=== PATIENT | female | born 1995 | race Caucasian/White ===

== ENCOUNTER 2021-10-10 13:51 | Outpatient (CLI) | payer BC, SELFPAY | END 2021-10-10 13:52 | disposition home or self-care (01) | LOC: AMB 10-16 12:51 | PROVIDERS: Visit Provider Student in an Organized Health Care Education/Training Program | DX: R55 Syncope and collapse (principal); R11.10 Vomiting, unspecified | CPT/HCPCS: A0425; A0427 ==

== ENCOUNTER 2021-10-10 14:35 | Emergency (ER) | payer BC, SELFPAY ==
[2021-10-10] VITALS (7 sets, daily range): BP systolic 100–115; BP diastolic 64–80; PULSE 82–99; RESP 12–14; TEMP 36.4; O2SAT 100; BMI 21.2
--- NOTE | 2021-10-10 15:04 | ED.GENADULT ---
HPI - General Adult General Time Seen by Provider: 15:04 Date Seen: 10/10/21 Chief complaint: Nausea/Vomiting/Diarrhea Stated complaint: nausea, vomiting, diarrhea, dizziness Source: patient Mode of arrival: EMS Limitations: no limitations History of Present Illness HPI narrative: Guillaume is a 26-year-old female with past medical history includes asthma presents emerged department by EMS with nausea vomiting, diarrhea dizziness. Patient states that she works usually 8:30 a.m. to 11:00 p.m. at night, she went to work at 10:00 a.m. months home by 1 p.m, patient had ongoing nausea at that time, she started having multiple episodes of vomiting, total of 5, she did have some loose stools during that day. She had some ongoing nausea with some discomfort associated with the vomiting. She has seen any urinary complaints. No sick contacts. She denies any fevers, she felt relatively well on Friday, then on day her symptoms returned, she has had episodes of vomiting daily, 1-2, diarrhea has resolved, she has been doing the brat diet. She states she has been 3 bottles of Pedialyte yesterday, she has had associated lightheadedness to the point where she almost blacks out. She denies any shortness of breath or chest pain, she denies any headache. Patient received 500 mL bolus and 4 mg IV Zofran per EMS. Patient denies any pain at this time, she did have ongoing upset stomach and nausea. Related Data Home Medications Medication Instructions Recorded Confirmed control 10/10/21 Allergies Allergy/AdvReac Type Severity Reaction Status Date / Time cefprozil [From Cefzil] Allergy Intermediate Rash Verified 10/10/21 14:40 Review of Systems Status of ROS: Reports: 10 or more systems reviewed and unremarkable except as noted in History and below [facility] Medical History (Updated 10/25/21 @ 00:00 by ) Asthma Surgical History (Updated 10/10/21 @ 15:10 by Terese Damon RN) History of placement of ear tubes Social History Smoking Status: Former smoker What tobacco products do you use: cigarettes How often do you have a drink containing alcohol: never AUDIT-C Alcohol total score: 0 Non-prescribed substance use: denies use Exam Const: Vital Signs, click to edit/add: Vital Signs - 24 hr 10/10/21 14:40 10/10/21 15:12 10/10/21 16:00 Temperature 97.6 F Pulse Rate [Right Pulse Oximeter] 84 83 Pulse Rate [orthos tatic lying] 93 Pulse Rate [orthos tatic sitting] 97 Pulse Rate [orthos tatic standing] 99 Respiratory Rate 14 14 Blood Pressure [Ri ght Upper Arm] 106/70 108/71 Blood Pressure [or thostatic lying] 100/72 Blood Pressure [or thostatic sitting] 115/72 Blood Pressure [or thostatic standing ] 110/80 Pulse Oximetry 100 100 Common normals: no apparent distress and oriented x3 Exam limitations: altered mental status General appearance: cooperative Orientation/consciousness: Yes awake, Yes oriented to person, Yes oriented to place and Yes oriented to time HENMT: Common normals: normocephalic and TM's normal bilaterally Head and scalp: normal to inspection and normocephalic Tympanic membrane: TM's normal bilaterally Mouth: oral and palatal mucosa normal Throat: posterior oropharynx normal Eye: Common normals: PERRL, EOMs intact bilaterally and conjunctivae normal General eye: normal appearance of both eyes Conjunctiva: conjunctiva(e) normal Pupil: PERRL Neck & C-Spine: Common normals: full ROM, no lymphadenopathy and supple General: normal visual inspection Lymph: Lymphatic: no lymphadenopathy noted Chest: Common normals: inspection of chest normal Resp: Common normals: normal respiratory effort, no retractions, no use of accessory muscles and clear to auscultation bilaterally Auscultation: clear to auscultation bilaterally Cardio: Common normals: regular rhythm, S1 normal heart sound and S2 normal heart sound Rhythm: regular rhythm Heart sounds: S1 normal and S2 normal GI: Common normals: Normal to inspection, nondistended, normoactive bowel sounds present, soft to palpation and non-tender Palpation: soft : Common normals: no CVA tenderness Bladder/kidney exam: no CVA tenderness Back & Pelvis: Common normals: no CVA tenderness and thoracic and lumbar spine normal to inspection Extremity: Common normals: normal to inspection, full ROM and normal capillary refill Neuro: Common normals: oriented x3 and CN's II-XII intact bilaterally Sensorium/orientation: awake, oriented to person, oriented to place and oriented to time Course Course Hospital Course: Workup will include IV peripheral, 0.9 normal saline bolus, 40 mg IV Protonix, obtain basic labs including quantitative HCG, CBC, CRP and lipase. Vitals are stable at this time, obtain orthostatics, to treat asymptomatically, less likely COVID. Patient was in agreement. Differential diagnosis include viral gastroenteritis, COVID, food poisoning, gastritis, pancreatitis, hepatitis cholecystitis appendicitis bowel obstruction nervosa, migraine headache motion sickness medication side effects. Include life-threatening complications appendicitis. Reevaluation(s) Reevaluation #1: Patient was updated on her lab results, CBC showed no leukocytosis, CRP within normal limits, metabolic panel unremarkable, she was not orthostatic. She was given the above care and feels better, she is tolerating orals at this time. Plan will be to discharge. Patient to follow up with her primary care provider over the next 7-10 days, return precautions given. Time: 16:37 Vital Signs Vital signs: Initial Vital Signs Temperature 97.6 F 10/10/21 14:40 Temperature Source Temporal Artery Scan 10/10/21 14:40 Pulse Rate 84 10/10/21 14:40 Respiratory Rate 14 10/10/21 14:40 Blood Pressure 106/70 10/10/21 14:40 Blood Pressure Mean 82 10/10/21 14:40 Blood Pressure Position Sitting 10/10/21 14:40 Pulse Oximetry 100 10/10/21 14:40 Oxygen Delivery Method 10/10/21 14:40 Vital Signs Temperature 97.6 F 10/10/21 14:40 Pulse Rate 84 10/10/21 14:40 Respiratory Rate 14 10/10/21 14:40 Blood Pressure 106/70 10/10/21 14:40 Pulse Oximetry 100 10/10/21 14:40 Temperature 97.6 F 10/10/21 17:24 Pulse Rate 82 10/10/21 17:24 Respiratory Rate 14 10/10/21 17:24 Blood Pressure 107/70 10/10/21 17:24 Pulse Oximetry 100 10/10/21 17:00 Medical Decision Making Lab Data Labs: Lab Results 10/10/21 10/10/21 Range/Units 15:08 15:08 WBC 7.31 (4.50-11.00) K/uL RBC 4.74 (4.00-5.20) m/uL Hgb 13.4 (12.0-16.0) gm/dL Hct 41.9 (33.0-51.0) % MCV 88 (80-100) fL MCH 28 (26-34) pg MCHC 32 (32-36) gm/dL RDW Coeff of Deejay 12.8 (11.5-15.5) % Plt Count 332 (140-440) K/uL Neut % (Auto) 58.4 (42.0-72.0) % Lymph % (Auto) 35.7 (20-44) % [place] % (Auto) 4.9 (0.0-11.0) % Eos % (Auto) 0.4 (0.0-7.0) % Baso % (Auto) 0.5 (0.0-3.0) % Neut # (Auto) 4.26 (1.7-7.0) K/uL Lymph # (Auto) 2.61 (0.90-2.90) K/uL [place] # (Auto) 0.40 (0.00-0.90) K/UL Eos # (Auto) 0.03 (0.00-0.50) K/uL Baso # (Auto) 0.04 (0.00-0.30) K/uL Abs Immat Gran (auto) 0.01 (0.00-0.30) K/uL Sodium 141 (135-149) mmol/L Potassium 3.6 (3.6-5.1) mmol/L Chloride 106 (96-114) mmol/L Carbon Dioxide 21 (20-32) mmol/L BUN 13 (5-24) mg/dL Creatinine 0.7 (0.5-1.5) mg/dL Estimated Creat Clear 92.71 Glucose 83 (60-115) mg/dL Calcium 9.0 (8.4-10.6) mg/dL Total Bilirubin 0.5 (0.1-1.5) mg/dL AST 22 (12-35) U/L ALT 16 (4-35) U/L Alkaline Phosphatase 62 (40-150) U/L C-Reactive Protein < 0.5 L (0.5-1.0) mg/dL Total Protein 7.4 (6.0-8.3) g/dL Albumin 4.5 (3.3-5.0) g/dL Lipase 88 (23-300) U/L HCG, Quant < 2.39 mIU/mL Discharge Plan Discharge Clinical Impression: Lightheadedness, Stress, Diarrhea, Vomiting Patient Disposition: Home, Self-Care Condition: Improved Additional Instructions: Continue to push fluids and with the BRAT diet (Bananas, Rice, Applesauce, [place]), follow up with primary care provider in the next 5-7 days, return if worsening symptoms. Activity Level: Activity as Tolerated Discharge Diet: Regular Prescriptions: No Action control 0RF Stand Alone Forms: [employer] Info Instructions
[2021-10-10] MEDS: 0.9 % SODIUM CHLORIDE 1000 ml 1,000 ML IV (15:22)
[2021-10-10] MEDS: PANTOPRAZOLE SODIUM 40 MG INJ IVP (15:22)
[2021-10-10 15:34] LABS: Basophils Absolute Auto 0.04 K/uL (0.00-0.30); Basophils Percent Auto 0.5 % (0.0-3.0); Eosinophils Absolute Auto 0.03 K/uL (0.00-0.50); Eosinophils Percent Auto 0.4 % (0.0-7.0); Hematocrit 41.9 % (33.0-51.0); Hemoglobin* 13.4 gm/dL (12.0-16.0); Immature Granulocytes Abs Auto 0.01 K/uL (0.00-0.30); Lymphocytes Absolute Auto 2.61 K/uL (0.90-2.90); Lymphocytes Percent Auto 35.7 % (20-44); Mean Corpuscular HGB Conc 32 gm/dL (32-36); Mean Corpuscular Hemoglobin 28 pg (26-34); Mean Corpuscular Volume 88 fL (80-100); Monocytes Percent Auto 4.9 % (0.0-11.0); Neutrophils Absolute Auto 4.26 K/uL (1.7-7.0); Neutrophils Percent Auto 58.4 % (42.0-72.0); Platelet Count* 332 K/uL (140-440); RDW Coefficient of Variation % 12.8 % (11.5-15.5); Red Blood Count 4.74 m/uL (4.00-5.20); White Blood Count* 7.31 K/uL (4.50-11.00)
[2021-10-10 15:43] LABS: Albumin* 4.5 g/dL (3.3-5.0); Chloride* 106 mmol/L (96-114); Sodium* 141 mmol/L (135-149)
[2021-10-10 15:44] LABS: Potassium* 3.6 mmol/L (3.6-5.1)
[2021-10-10 15:46] LABS: Alkaline Phosphatase* 62 U/L (40-150); Aspartate Amino Transferase* 22 U/L (12-35); Bilirubin Total* 0.5 mg/dL (0.1-1.5); Blood Urea Nitrogen* 13 mg/dL (5-24); Carbon Dioxide* 21 mmol/L (20-32); Creatinine* 0.7 mg/dL (0.5-1.5); Est. Creatinine Clearance* 92.71; Estimated Glomerular Filt Rate 123.01; Lipase* 88 U/L (23-300); Total Protein* 7.4 g/dL (6.0-8.3)
[2021-10-10 15:47] LABS: Alanine Aminotransferase* 16 U/L (4-35); Glucose* 83 mg/dL (60-115)
[2021-10-10 15:51] LABS: C Reactive Protein* < 0.5 mg/dL (0.5-1.0)
[2021-10-10 16:01] LABS: HCG Quantitative* < 2.39 mIU/mL
[2021-10-10 17:13] LABS: Slide Review Reflex No
== END 2021-10-10 17:46 | disposition home or self-care (01) ==
PROVIDERS: Emergency Provider Student in an Organized Health Care Education/Training Program
DX: R11.2 Nausea with vomiting, unspecified (principal); R19.7 Diarrhea, unspecified
CPT/HCPCS: 96365; 36415; 80053; 83690; 84702; 85025; 86140; 99283; C9113; J7030